=== PATIENT | female | born 1965 | race Caucasian/White ===

== ENCOUNTER → 2017-11-04 | Outpatient (CLI) | payer OTHER ==
[2017-11-07 12:22] LABS: HPV Genotype 16 Not Detected (NOTDET); HPV Genotype 18 Not Detected (NOTDET); HPV High Risk Other Not Detected (NOTDET)
== END | disposition home or self-care (01) ==
LOC: OLS 13:46
PROVIDERS: Obstetrics & Gynecology Gynecology
DX: Z12.4 Encounter for screening for malignant neoplasm of cervix (principal)
CPT/HCPCS: 87624; G0123

== ENCOUNTER → 2019-06-04 | Outpatient (CLI) | payer OTHER | END | disposition home or self-care (01) | LOC: LAB EV 12:13 → LAB SHORT 12:13 | DX: M25.569 Pain in unspecified knee (principal) | CPT/HCPCS: 84550 ==

== ENCOUNTER 2019-11-20 06:55 | Day surgery (SDC) | payer OTHER ==
[~2019-11-20] VITALS: Ht 165.1 cm; Wt 59.1 kg
[~2019-11-20 06:55] MED LIST: OYSTER SHELL 51 EACH PO
--- NOTE | 2019-11-20 08:20 | NUR ---
11/20/19 0820 Lisa Rivas PT C/O NAUSEA. NOTIFIED. MEDICATED WITH ZOFRAN 4MG IVP PER ORDERS.
== END 2019-11-20 09:21 | disposition home or self-care (01) ==
LOC: ORSCSDS 06:55
PROVIDERS: Internal Medicine Gastroenterology
PROC: 0DJD8ZZ Inspection of Lower Intestinal Tract, Via Natural or Artificial Opening Endoscopic (ICD-10-PCS; principal; 2019-11-20 08:30)
DX: Z12.11 Encounter for screening for malignant neoplasm of colon (principal); Z87.891 Personal history of nicotine dependence
CPT/HCPCS: J2405; J2704; J7120